=== PATIENT | male | born 2000 | race African-American/Black ===

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

== ENCOUNTER 2020-07-25 04:42 | Emergency (ER) | payer OTHER ==
[~2020-07-25] VITALS: Ht 165.1 cm; Wt 53.5 kg
[~2020-07-25 04:42] MED LIST changes: +BENTYL 20 MG TA20 M1 PO
[2020-07-25 05:32] VITALS: BP 116/71
== END 2020-07-25 05:34 | disposition home or self-care (01) ==
LOC: ER 04:42
DX: F12.129 Cannabis abuse with intoxication, unspecified (principal); J45.909 Unspecified asthma, uncomplicated; Z79.899 Other long term (current) drug therapy

== ENCOUNTER 2020-10-28 14:12 | Emergency (ER) | payer OTHER ==
[~2020-10-28] VITALS: Ht 165.1 cm; Wt 54.4 kg
[2020-10-28] MEDS ORDERED: ONDANSETRON HCL4 M2 PO (17:22)
[2020-10-28 18:15] VITALS: BP 106/68
--- NOTE | 2020-10-29 07:07 | EKG ---
[address] [address] [place] [address] ELECTROCARDIOGRAM REPORT Name: FLOR LÓPEZ [id number] Admission: 10/28/20 Attend Phys: Discharge: 10/28/20 Date of : [birth year] Report #: [id number] [facility] ED Test Date: 2020-10-28 Test Time: 17:38:51 Pat Name: FLOR LÓPEZ Department: Room: Gender: M Ironer Or Presser: unknown : 2000 Requested By: Julia Levy Order Number: [id number] MD: Emile Harrison Measurements Intervals [place] Rate: 57 P: 86 MS: 150 QRS: 85 QRSD: 91 T: 47 QT: 415 QTc: 404 Interpretive Statements Sinus rhythm J Point elev, probable normal early repol pattern Baseline wander in lead(s) I,II,aVR,aVF,V1,V2,V3,V5,V6 No previous ECG available for comparison Electronically Signed On 10-29-2020 7:07:13 CDT by Emile Harrison [email or web address] <ELECTRONICALLY SIGNED> By: Emile Harrison MD, [facility] 10/29/20706 [id number] Emile Harrison MD, [facility] /EPI
== END 2020-10-28 18:16 | disposition home or self-care (01) ==
LOC: ER 14:12
DX: B34.9 Viral infection, unspecified (principal); Z20.822 Contact with and (suspected) exposure to COVID-19; J45.909 Unspecified asthma, uncomplicated; Z79.899 Other long term (current) drug therapy

== ENCOUNTER 2020-12-04 23:02 | Emergency (ER) | payer OTHER ==
[~2020-12-04] VITALS: Ht 165.1 cm; Wt 54.4 kg
[~2020-12-04 23:02] MED LIST changes: +ONDANSETRON HCL4 M2 PO
[2020-12-05 01:33] VITALS: BP 121/70
== END 2020-12-05 01:34 | disposition home or self-care (01) ==
LOC: ER 23:02
DX: J06.9 Acute upper respiratory infection, unspecified (principal); Z20.822 Contact with and (suspected) exposure to COVID-19; J45.909 Unspecified asthma, uncomplicated; Z79.899 Other long term (current) drug therapy

== ENCOUNTER 2021-08-23 12:14 | Emergency (ER) | payer OTHER ==
[~2021-08-23] VITALS: Ht 175.3 cm; Wt 68.0 kg
[2021-08-23 12:15] VITALS: BP 137/70
== END 2021-08-23 13:10 | disposition home or self-care (01) ==
LOC: ER 12:14
DX: U07.1 COVID-19 (principal); J45.909 Unspecified asthma, uncomplicated; Z79.899 Other long term (current) drug therapy